=== PATIENT | female | born 1940 | race Caucasian/White ===

== ENCOUNTER 2017-06-03 19:50 | Inpatient (IN) | payer OTHER ==
[~2017-06-03] VITALS: Ht 157.5 cm; Wt 72.6 kg
[2017-06-03 19:59] VITALS: Ht 157.5 cm; Wt 72.6 kg
[2017-06-03] MEDS ORDERED: ARICEPT10 MG PO (20:17)
[2017-06-03] MEDS ORDERED: ASPIR LOW81 MG PO (20:17)
[2017-06-03] MEDS ORDERED: CHLORTHALIDONE25 MG PO (20:17)
[2017-06-03] MEDS ORDERED: NAMENDA10 M2 PO (20:17)
[2017-06-03] MEDS ORDERED: COZAAR100 MG PO (20:17)
[2017-06-03] MEDS ORDERED: OLANZAPINE5 M2 PO (20:18)
[2017-06-03] MEDS ORDERED: TOVIAZ8 MG PO (20:18)
[2017-06-03] MEDS ORDERED: CLARINEX5 MG PO (20:18)
[2017-06-03] MEDS ORDERED: SIMVASTATIN40 M1 PO (20:18)
[2017-06-03 21:10] LABS: BASOPHIL % 0.3 % (0-2); PLATELET COUNT 183 x10^3mcL (130-400); RED CELL DISTRIBUTION WIDTH 14.5 % (11.5-14.5)
[2017-06-03 21:34] LABS: CALCIUM 9.5 mg/dL (8.5-10.1); CARBON DIOXIDE 26.5 mmol/L (21-32); CHLORIDE SERUM 103 mmol/L (98-107); CREATININE SERUM 1.4 mg/dL (0.6-1.0); GLUCOSE SERUM 116 mg/dL (74-106); POTASSIUM SERUM 3.5 mmol/L (3.5-5.1); SODIUM SERUM 142 mmol/L (136-145)
[2017-06-03 21:36] LABS: ALBUMIN 3.8 g/dL (3.4-5.0); ALKALINE PHOSPHATASE 93 U/L (46-116); ALT/SGPT 47 U/L (14-59); AST/SGOT 70 U/L (15-37); BILIRUBIN TOTAL 0.4 mg/dL (0.20-1.00); TOTAL PROTEIN, SERUM 7.8 g/dL (6.4-8.2)
[2017-06-03 21:48] LABS: UA SPECIFIC GRAVITY 1.025 (1.005-1.035); microscopic required? YES; urine erythrocyte TRACE (NEGATIVE)
[2017-06-03 23:52] LABS: CHOLESTEROL/HDL RATIO 2.3; PHOSPHOROUS 3.9 mg/dL (2.5-4.9)
[2017-06-04 00:10] VITALS: BP 145/86
[2017-06-04 00:12] LABS: FREE T4 1.08 ng/dL (0.76-1.46); FREE THYROXINE INDEX 2.6 ug/dL (1.4-4.5); T4(THYROXINE) 8.3 ug/dL (4.7-13.3)
[2017-06-04 00:29] LABS: T3 TOTAL 1.14 ng/mL
[2017-06-04 06:13] LABS: BASOPHIL % 0.8 % (0-2); PLATELET COUNT 147 x10^3mcL (130-400); RED CELL DISTRIBUTION WIDTH 13.9 % (11.5-14.5)
[2017-06-04 06:18] VITALS: BP 126/54
[2017-06-04 06:18] LABS: CALCIUM 8.4 mg/dL (8.5-10.1); CARBON DIOXIDE 28.7 mmol/L (21-32); CHLORIDE SERUM 112 mmol/L (98-107); CREATININE SERUM 1.1 mg/dL (0.6-1.0); GLUCOSE SERUM 93 mg/dL (74-106); POTASSIUM SERUM 3.2 mmol/L (3.5-5.1); SODIUM SERUM 149 mmol/L (136-145)
[2017-06-04 09:02] VITALS: BP 141/43
[2017-06-04 13:05] VITALS: BP 130/63
[2017-06-04 17:37] VITALS: BP 142/61
[2017-06-04 20:55] VITALS: BP 126/63
[2017-06-05 06:16] LABS: BASOPHIL % 0.7 % (0-2); PLATELET COUNT 154 x10^3mcL (130-400); RED CELL DISTRIBUTION WIDTH 14.2 % (11.5-14.5)
[2017-06-05 06:32] VITALS: BP 150/55
[2017-06-05 08:04] LABS: CALCIUM 8.4 mg/dL (8.5-10.1); CARBON DIOXIDE 25.8 mmol/L (21-32); CHLORIDE SERUM 105 mmol/L (98-107); CREATININE SERUM 1.1 mg/dL (0.6-1.0); GLUCOSE SERUM 82 mg/dL (74-106); MAGNESIUM 1.7 mg/dL (1.8-2.4); PHOSPHOROUS 3.2 mg/dL (2.5-4.9); POTASSIUM SERUM 3.5 mmol/L (3.5-5.1); SODIUM SERUM 139 mmol/L (136-145)
[2017-06-05 09:00] VITALS: BP 140/53
[2017-06-05 18:26] VITALS: BP 131/66
[2017-06-05 21:11] VITALS: BP 138/52
[2017-06-06 06:04] LABS: BASOPHIL % 0.6 % (0-2); PLATELET COUNT 156 x10^3mcL (130-400); RED CELL DISTRIBUTION WIDTH 14.1 % (11.5-14.5)
[2017-06-06 06:22] VITALS: BP 112/86
[2017-06-06 06:51] LABS: CALCIUM 8.8 mg/dL (8.5-10.1); CARBON DIOXIDE 29.2 mmol/L (21-32); CHLORIDE SERUM 103 mmol/L (98-107); CREATININE SERUM 1.2 mg/dL (0.6-1.0); GLUCOSE SERUM 91 mg/dL (74-106); MAGNESIUM 2.2 mg/dL (1.8-2.4); PHOSPHOROUS 3.2 mg/dL (2.5-4.9); POTASSIUM SERUM 3.4 mmol/L (3.5-5.1); SODIUM SERUM 142 mmol/L (136-145)
[2017-06-06 08:15] VITALS: BP 175/82
[2017-06-06 12:54] VITALS: BP 139/59; BP 175/82
[2017-06-06 13:10] VITALS: BP 139/59
== END 2017-06-06 14:40 | DRG 70 ==
LOC: ED 19:50 → DU 22:37
PROVIDERS: Emergency Medicine; Family Medicine Sports Medicine
DX: G93.41 Metabolic encephalopathy (principal); N17.0 Acute kidney failure with tubular necrosis; M62.82 Rhabdomyolysis; E87.0 Hyperosmolality and hypernatremia; G90.8 Other disorders of autonomic nervous system; E86.0 Dehydration; W18.39XA Other fall on same level, initial encounter; Y93.89 Activity, other specified; Y92.89 Other specified places as the place of occurrence of the external cause; Y99.8 Other external cause status; G30.9 Alzheimer's disease, unspecified; F02.80 Dementia in other diseases classified elsewhere, unspecified severity, without behavioral disturbance, psychotic disturbance, mood disturbance, and anxiety; E78.00 Pure hypercholesterolemia, unspecified; Z86.73 Personal history of transient ischemic attack (TIA), and cerebral infarction without residual deficits; R31.9 Hematuria, unspecified; I10 Essential (primary) hypertension; Z79.82 Long term (current) use of aspirin; E83.51 Hypocalcemia; E87.6 Hypokalemia; I08.1 Rheumatic disorders of both mitral and tricuspid valves
CPT/HCPCS: 83880; 84439; 92610-GN; 97110-GP; 97116-GP; 97530-GP; J0696; J3475; J3480; J7030; Q0092